=== PATIENT | female | born 1965 | race Caucasian/White ===

== ENCOUNTER → 2021-10-10 | Day surgery (SDC) | payer OTHER ==
[~2021-10-10] VITALS: Ht 165.1 cm; Wt 73.0 kg
[~2021-10-10] MED LIST: IV RINGERS,LACTATED 1000ML 1,000 ML IV SCH; PROPOFOL 10 MG/ML (20ML) VIAL. IV ONE
[2021-10-10 06:59] VITALS: BP 151/76
[2021-10-10 08:35] VITALS: BP 123/79
== END | disposition home or self-care (01) ==
LOC: ENDOS 06:27
PROVIDERS: ATTEND Internal Medicine Gastroenterology
DX: Z12.11 Encounter for screening for malignant neoplasm of colon (principal); K64.0 First degree hemorrhoids; K63.89 Other specified diseases of intestine; K21.00 Gastro-esophageal reflux disease with esophagitis, without bleeding; K31.89 Other diseases of stomach and duodenum; I10 Essential (primary) hypertension; Z79.899 Other long term (current) drug therapy; Z98.890 Other specified postprocedural states
CPT/HCPCS: 43239; 45378; 88305; J2704

== ENCOUNTER → 2021-10-22 | Outpatient (CLI) | payer OTHER ==
[2021-10-10 08:35] VITALS: BP 123/79
--- NOTE | 2021-10-23 07:48 | RAD ---
DIAGNOSTIC BILATERAL BREAST ULTRASOUND INDICATION: Bilateral breast pain. COMPARISON: Mammogram 08/16/2021, 08/25/2015. Right breast ultrasound 10/12/2014. FINDINGS: Ultrasound was performed in the areas of patient concern in the right and left breasts. In the right breast 2:00 radial, 1 cm from the nipple there is a hypoechoic parallel orientation circ umscribed mass measuring 9 x 4 x 3 mm. Additional 3 x 3 x 3 mm circumscribed hypoechoic mass with wel l-defined back wall in the 9:00 position 1 cm from the nipple. In the 8:00 radial 5 cm from the nippl e there is a 4 x 4 by 4 cm round hypoechoic circumscribed asymmetry. No abnormal color Doppler blood flow. Normal visualized right axillary lymph nodes. In the left breast 9:00 radial 5 cm from the nipple there is a hypoechoic, nearly anechoic, ovoid mas s measuring 10 x 6 x 7 mm. Normal visualized left axillary lymph nodes. IMPRESSION: 1. Multiple bilateral hypoechoic to nearly anechoic ovoid, parallel orientation masses which are lik rosanna minimally complicated cysts or benign masses such as fibroadenomas. Findings similar to areas rogelio ntified on prior ultrasound. ASSESSMENT: BI-RADS 3: Probably Benign. RECOMMENDATION: Six-month short interval follow-up bilateral breast ultrasound ensure stability of fi ndings. The facility will notify the patient of the results via mail. Patient information will be entered int o the mammography reminder system with a target recall date for the next mammogram. A reminder letter will be generated by the facility. Electronically signed by: Kin Nina MD (10/22/2021 3:13 PM) [id number]
== END ==
LOC: MAMMO 13:48
PROVIDERS: ATTEND Nurse Practitioner Family
DX: N63.12 Unspecified lump in the right breast, upper inner quadrant (principal); N63.11 Unspecified lump in the right breast, upper outer quadrant; N63.22 Unspecified lump in the left breast, upper inner quadrant
CPT/HCPCS: 76641-50